=== PATIENT | female | born 1975 | race Caucasian/White ===

== ENCOUNTER 2016-07-23 07:38 | Inpatient (IN) ==
[2016-07-23] MEDS ORDERED: IOPAMIDOL 100 ML BOTTLE IV ONE (07:39)
[2016-07-23] MEDS ORDERED: 0.9 % SODIUM CHLORIDE 1,000 ML IV ONE (08:06)
[2016-07-23] MEDS ORDERED: ONDANSETRON 4 MG/2 ML VIAL IV ONE ×2 (08:07→10:16)
--- NOTE | 2016-07-23 08:34 | Emergency Department Note ---
Abdominal Pain HPI - General Chief Complaint: Abdominal Pain Stated Complaint: Lower R abd pain Time Seen by Provider: 07/23/16 08:31 Source: patient Mode of arrival: ambulatory - History of Present Illness HPI Narrative: 41-year-old female with a history of right lower quadrant pain present since 1: 00 yesterday afternoon. She states the pain was a 7/10 yesterday and is now complaining that it an 8/10. It has gotten worse. Also states that when she moves around. It does hurt in the right lower quadrant. She last ate at 8:00 last night. sHe denies urgency, frequency or dysuria. Patient is afebrile. She has nausea, but there's been no vomiting. There's been no diarrhea, constipation problems. No hematemesis, no melena. a history of a cholecystectomy, but still has her appendix - Related Data Home Medications Medication Instructions Recorded Confirmed Albuterol Sulfate [Albuterol 2 puff INHALATION Q4HP PRN 07/23/16 07/23/16 Sulfate Hfa] Ferrous Gluconate [Fergon] 240 mg PO PRN PRN 07/23/16 07/23/16 Omeprazole [Prilosec] 20 mg PO DAILY 07/23/16 07/23/16 Previous Rx's Medication Instructions Recorded norethindrone-e.estradiol 1 tab PO QDAY #28 tab 03/15/16 triphasic 0.5 mg/0.75 mg/1 mg-35 mcg tablet levothyroxine 125 mcg tablet 125 mcg PO QDAY 30 Days 06/03/16 hydrocodone 7.5 mg-acetaminophen 1 tab PO BID PRN #60 tab 06/28/16 325 mg tablet hydrocodone bitartrate ER 20 mg 20 mg PO BID #60 cap 06/28/16 capsule,extended release 12 hr Allergies Allergy/AdvReac Type Severity Reaction Status Date / Time No Known Drug Allergies Allergy Verified 07/23/16 07:43 Review of Systems All systems ED: reviewed and negative except as stated. Constitutional: Denies: fever Eyes: Denies: eye pain ENT ED: Denies: ear pain Cardiovascular: Denies: chest pain Respiratory: Denies: cough Gastrointestinal: Reports: as per HPI, abdominal pain. Denies: nausea, vomiting , diarrhea, constipation, hematemesis, melena, hematochezia Genitourinary: Denies: urgency, dysuria, frequency Musculoskeletal: Denies: back pain Neurological: Denies: headache Psychiatric: Denies: anxiety Endocrine: Denies: fatigue Hematological/Lymphatic: Denies: easy bleeding Allergic/Immunologic: Denies: facial swelling Abdominal Pain PMH - Past Medical History Surgical history ED: Reports: cholecystectomy Family history: Reports: no significant family history - Social History Smoking status: Former smoker Alcohol use: Reports: None Drug use: Reports: none Physical Exam - General Limitations: no limitations General appearance: alert - Head Head exam: atraumatic - Eye Eye exam: Present: normal appearance - ENT ENT exam: normal exam, normal oropharynx - Neck Neck exam: Present: normal inspection, full ROM. Absent: trachea midline - Chest Chest inspection: Present: normal inspection - Respiratory Respiratory exam: Present: normal lung sounds bilaterally. Absent: respiratory distress, wheezes - Cardiovascular Cardiovascular exam: Present: regular rate, normal rhythm. Absent: bradycardia - Abdominal Exam Abdominal exam: Present: tenderness, guarding, rebound, normal bowel sounds, tenderness at McBurney's Point. Absent: rigidity, organomegaly Abdominal tenderness: Present: RLQ - Rectal Exam Rectal exam: Present: deferred - Extremities Exam Extremities exam: Present: normal inspection, full ROM - Back Exam Back exam: Present: normal inspection, full ROM. Absent: tenderness - Neurological Exam Neurological exam: Present: alert, oriented X3, CN II-XII intact - Psychiatric Psychiatric exam: Present: normal affect Course Vital Signs Temperature 98.4 F 07/23/16 07:39 Pulse Rate 108 H 07/23/16 07:39 Respiratory Rate 16 07/23/16 07:39 Blood Pressure 121/74 07/23/16 07:39 Pulse Oximetry (%) 98 07/23/16 07:39 Temperature 98.4 F 07/23/16 07:39 Pulse Rate 80 07/23/16 09:16 Respiratory Rate 20 07/23/16 09:16 Blood Pressure 116/61 07/23/16 09:16 Pulse Oximetry (%) 98 07/23/16 09:16 Abdominal Pain - MDM Narrative Medical decision making narrative: White count is elevated at 15,000, CT was performed. She reveals probable diverticulitis over the area of the appendix. The appendix appeared to be normal. Case was discussed with Dr. Wharton. The patient to be admitted, started on Zosyn and reevaluated - Lab Data Result diagrams: 07/23/16 08:15 Lab Results 07/23/16 07/23/16 Range/Units 08:15 08:15 WBC 15.4 H (4.5-11.0) K/mcL RBC 4.52 (4.00-5.20) M/mcL Hgb 12.8 (12.0-15.0) g/dL Hct 39.0 (36.0-48.0) % POC Hct 40.0 (36.0-48.0) % MCV 86.2 (80.0-100.0) fL MCH 28.2 (26.0-34.0) pg MCHC 32.8 (31.0-36.0) g/dL RDW 13.9 (11.5-14.5) % Plt Count 289 (140-440) K/mcL MPV 8.2 (7.4-10.4) fL Total Counted 200 Seg Neutrophils % 73 (38-78) % Band Neutrophils % Not Reportable Lymphocytes % 17 (15-49) % Monocytes % (Manual) 5 (1-9) % Eosinophils % (Manual) 1 (0-7) % Reactive Lymphocytes 4 H (0-2) % Platelet Estimate Normal (NORMAL) RBC Morphology Normal (NORMAL) POC Sodium 139 (133-145) mmol/L POC Potassium 4.0 (3.3-5.1) mmol/L POC Chloride 101 (96-108) mmol/L POC Total CO2 26 (22-30) mmol/L POC BUN 9 (6-20) mg/dl POC Creatinine 0.6 (0.6-1.1) mg/dl POC Glucose 123 H (70-105) mg/dL POC WB Ioniz Calcium 1.17 (1.16-1.32) mmol/L Disposition Clinical Impression: Acute abdomen Disposition: Xfer As Outpt/Obs ([facility]) Condition: Undetermined Referrals: Val Lechuga, LIYAH, SHOULDER PUNCHER [Primary Care Provider] - Time of Disposition: 09:43
[2016-07-23 08:57] LABS: Mean Cell Volume 86.2 fL (80.0-100.0); Mean Corpuscular HGB Conc 32.8 g/dL (31.0-36.0); Mean Corpuscular Hemoglobin 28.2 pg (26.0-34.0); Platelet Count 289 K/mcL (140-440); RBC 4.52 M/mcL (4.00-5.20); Red Cell Distribution Width 13.9 % (11.5-14.5)
[2016-07-23 09:23] LABS: Eosinophils % (Manual) 1 % (0-7); Lymphocytes % 17 % (15-49); Monocytes % (Manual) 5 % (1-9); Platelet Estimate NORMAL (NORMAL); RBC Morphology NORMAL (NORMAL); Segmented Neutrophils % 73 % (38-78)
--- NOTE | 2016-07-23 09:24 | Cat Scan Report ---
CLINICAL INFORMATION: Right lower quadrant pain. Elevated white blood cell count. COMPARISON: Previous CT scan dated 09/25/2012 TECHNIQUE: Axial images were obtained through the abdomen and pelvis. Sagittally and coronally reformatted images. 80 mL nonionic contrast material injected intravenously. FINDINGS: Appendix is prominent. Appendix measures approximately 7 mm in cross-sectional diameter. Appendiceal lumen is gas filled. No appendicolith. There is a cecal diverticulum containing contrast material. There is extensive pericecal inflammatory change. There are small lymph nodes adjacent to the cecum. Appearance is consistent with cecal diverticulitis. No discrete abscess. No pneumoperitoneum. No free pelvic fluid. No detectable colonic mass. Colon is otherwise negative. No sigmoid diverticulitis. Lung bases are negative. No focal infiltrate or mass. No pleural fluid. No pericardial fluid. Negative liver. No focal intrahepatic abnormality. Gallbladder has been removed. No dilated bile ducts. Negative pancreas. No pancreatic mass. No peripancreatic abnormality. Negative spleen. Normal enhancement splenic and portal veins. Negative adrenal glands. Negative kidneys. No solid or cystic mass. No hydronephrosis. No small bowel obstruction. Lumbar spine, sacrum, pelvis are negative. Images were reviewed directly with Dr. Werner IMPRESSION: 1. Localized inflammatory reaction infiltration of pericecal fat and a small amount of fluid. Appearance is consistent with cecal diverticulitis. Appendiceal lumen remains gas-filled without definite evidence for appendicitis. 2. No other abnormality. Interpreted and Authenticated by: Christiano Medina 07/23/16
[2016-07-23] MEDS ORDERED: PIPERACILLIN SODIUM/TAZOBACTAM 3.375 GM in DEXTROSE 5% IN WATER 50 ML IV SCH (09:45)
[2016-07-23] MEDS ORDERED: ONDANSETRON 4 MG/2 ML VIAL ONE (10:24)
[2016-07-23] MEDS: HYDROmorphone 2 MG/ML SYRINGE IV PRN ×5 (11:28→21:44)
[2016-07-23] MEDS: PIPERACILLIN SODIUM/TAZOBACTAM 3.375 GM in DEXTROSE 5% IN WATER 50 ML IV SCH ×2 (11:30→21:40)
[2016-07-23] MEDS: 0.9 % SODIUM CHLORIDE 1,000 ML IV SCH ×2 (11:41→23:24)
[2016-07-23] MEDS: metroNIDAZOLE 500 MG/100 ML BAG IV SCH ×3 (12:31→23:24)
--- NOTE | 2016-07-23 15:16 | General Surg History&Physical ---
History of Present Illness Patient information: Note initiated : 07/23/16 at 3:14 pm Service Date, if different from initiated Date: [] Patient: Julia Torres 41 y/o F admitted on 07/23/16 for Lower Rt Abd Pain. Chief Complaint: [] HPI: Ms. Torres is a 41 year old female WAS ADMITTED WITH RIGHT LOWER QUADRANT PAIN .the patient had onset of sharp pain in her right lower quadrant about 2 PM yesterday. The pain continued throughout the night. She had nausea but no vomiting. She did not have diarrhea. When she awakened this morning her pain was very severe and she was evaluated in the emergency room. She was noted to have a white count of 14,[address] scan shows a normal appendix with pericecal inflammation suggestive of cecal diverticulitis. She is admitted and will be treated nonoperatively as long as she responds. Review of Systems - Constitutional fatigue, headache(s), malaise - EENT Nose, mouth and throat: headache(s), neck pain - Cardiovascular no chest pain at rest, no chest pain with activity, no dyspnea on exertion, no irregular heart rhythm, no palpatations, no rapid heart rate, no syncope - Respiratory as per HPI ( cell and is right on the chest) - Gastrointestinal abdominal pain, bloating, cramping, nausea - Genitourinary Genitourinary: urinary incontinence - Musculoskeletal arthralgias, joint swelling, myalgias, stiffness - Integumentary no bleeding lesions, no changing lesions, no swelling - Neurological as per HPI ( to open the patient), headache(s) - Psychiatric abnormal sleep pattern, anxiety, depression, irritability - Hematologic/Lymphatic no easy bleeding, no easy bruising, no lymphadenopathy - Allergic/Immunologic no tongue swelling, no throat swelling, no uticaria, no wheezing, no lip swelling Past History Past medical history: history of asthma History of anemia Fibromyalgia Gastroesophal reflux disease Hypothyroidism Migraine headaches Chronic joint pain Diabetes mellitus2 Past surgical history: left shoulder arthroscopy Cholecystectomy Abdominoplasty Trigger finger surgery Past family history: breast cancer Chronic obstructive lung disease Depression Hypertension Coronary artery disease Gastric neoplasm Past social history: alcohol--denies Tobacco--former user Substance--present marijuana user Medications and Allergies Home Medications Medication Instructions Recorded Confirmed Type Albuterol Sulfate [Albuterol 2 puff INHALATION Q4HP PRN 07/23/16 07/23/16 History Sulfate Hfa] Ferrous Gluconate [Fergon] 240 mg PO PRN PRN 07/23/16 07/23/16 History Omeprazole [Prilosec] 20 mg PO DAILY 07/23/16 07/23/16 History Allergies Allergy/AdvReac Type Severity Reaction Status Date / Time No Known Drug Allergies Allergy Verified 07/23/16 07:43 Exam Temp Pulse Resp BP Pulse Ox 98.4 F 85 16 118/71 96 07/23/16 11:44 07/23/16 11:44 07/23/16 11:44 07/23/16 11:44 07/23/16 11:44 - General physical appearance well developed, well nourished, no distress - Eyes PERRL, normal ocular movement - ENT normal pinna, normal nares, normal mucosa, no hearing loss, no congestion - Head Head exam IM: Present: atraumatic, normocephalic - Neck no masses, no bruits, trachea midline, no lymphadectomy, no venous distension - Cardiovascular Cardiovascular exam IM: Present: normal rate and rhythm - Respiratory normal expansion, normal respiratory effort, clear to percussion, clear to auscultation - Abdomen Abdomen: Present: soft (urgical changes of the abdominal wall from abdominoplasty;distention of abdomen; tenderness with guarding right lower quadrant), tender, bowel sounds, distended Hernia: Present: none - Integumentary Present: no rash, no growths, no abnormal pigmentation - Neurologic Present: normal coordination, normal sensation - Musculoskeletal Present: normal gait, normal posture - Psychiatric Present: oriented to time, oriented to person, oriented to place, speech is normal, memory intact Assessment and Plan (1) Cecal diverticulitis patient will be treated with Zosyn andFlagyl IV. She will be nothing by mouth exce popsicles Repeat CT scan will be done in 72 hours to document healing. If she heals she will be discharged home on 2 weeks of antibiotics. If she needs operative therapy she will probably need a right colectomy. 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
[2016-07-23] MEDS ORDERED: BUTALB/ACETAMINOPHEN/CAFFEINE 1 TABLET PO ONE (15:23)
[2016-07-23] MEDS: PROMETHAZINE 25 MG/ML VIAL IV PRN (19:35)
[2016-07-24] MEDS: BUTALB/ACETAMINOPHEN/CAFFEINE 1 TABLET PO PRN (03:48)
[2016-07-24] MEDS: HYDROmorphone 2 MG/ML SYRINGE IV PRN ×7 (03:49→22:18)
[2016-07-24] MEDS: PIPERACILLIN SODIUM/TAZOBACTAM 3.375 GM in DEXTROSE 5% IN WATER 50 ML IV SCH ×3 (05:27→22:17)
[2016-07-24] MEDS: 0.9 % SODIUM CHLORIDE 1,000 ML IV SCH ×3 (06:02→22:19)
[2016-07-24] MEDS: metroNIDAZOLE 500 MG/100 ML BAG IV SCH ×4 (06:06→23:47)
[2016-07-24] MEDS ORDERED: FLU VACC QS2016-17 36MOS UP/PF 60 MCG/0.5 ML SYRINGE IM ONE (09:00)
[2016-07-24 09:46] LABS: Blood Urea Nitrogen 6 mg/dl (6-20)
[2016-07-24] MEDS: PROMETHAZINE 25 MG/ML VIAL IV PRN ×2 (09:54→22:17)
[2016-07-24 14:08] LABS: Basophils # (Auto) 0 K/mcL (0.0-0.3); Basophils % (Auto) 0.2 % (0.0-2.0); Eosinophils # (Auto) 0.2 K/mcL (0.0-0.7); Eosinophils % (Auto) 2.3 % (0.0-7.0); Granulocytes % (Auto) 69.2 % (38.0-78.0); Lymphocytes # (Auto) 2.3 K/mcL (1.5-4.8); Lymphocytes % (Auto) 22.1 % (15.5-49.0); Mean Cell Volume 87.9 fL (80.0-100.0); Mean Corpuscular HGB Conc 32.8 g/dL (31.0-36.0); Mean Corpuscular Hemoglobin 28.8 pg (26.0-34.0); Monocytes # (Auto) 0.7 K/mcL (0.1-0.9); Monocytes % (Auto) 6.2 % (1.0-9.0); Platelet Count 239 K/mcL (140-440); RBC 3.56 M/mcL (4.00-5.20); Red Cell Distribution Width 13.2 % (11.5-14.5)
--- NOTE | 2016-07-24 14:53 | General Surgery Progress Note ---
Subjective Narrative: Note initiated : 07/24/16 at 2:49 pm Service Date, if different from initiated Date: [] Patient: Julia Torres 41 y/o F admitted on 07/23/16 for Lower Rt Abd Pain/ Cecal Diverticulitis. Chief Complaint: [] Ms. Torres still has significant right lower quadrant pain and right flank pain. She has nausea bu no vomiting. She has had flatus but no bowel movement. She has not had documented fever. She is not clinically worse. Discussed the need to continue antibiotics and repeat CT scan on Friday. Objective Temp Pulse Resp BP Pulse Ox 97.6 F 74 14 107/72 96 07/24/16 12:00 07/24/16 12:00 07/24/16 12:00 07/24/16 12:00 07/24/16 12:00 - Additional Data Intake & Output - Last 24 hours: Intake & Output 07/22/16 07/23/16 07/24/16 07/25/16 05:59 05:59 05:59 05:59 Intake Total 1790 / 2940 1150 / 1150 Output Total 1000 / 1000 Balance 790 / 1940 1150 / 1150 Weight 185 lb - General physical appearance moderate distress - ENT no congestion - Neck no venous distension - Respiratory clear to auscultation - Cardiovascular Cardiovascular exam: Present: normal rate and rhythm, RRR, +S1, +S2 - Abdomen tender, bowel sounds, distended (distended abdomen with active bowel sounds; tenderness with guardingin right lower quadrant and right flank region. No mass felt.) - Integumentary no rash, no growths, no abnormal pigmentation - Neurologic normal coordination, normal sensation - Musculoskeletal normal gait, normal posture - Psychiatric oriented to time, oriented to person, oriented to place, speech is normal, memory intact - Labs 07/24/16 13:35 07/24/16 07:37 Diabetes panel 07/24/16 Range/Units 07:37 Sodium 141 (133-145) mmol/L Potassium 3.7 (3.3-5.1) mmol/L Chloride 102 (96-108) mmol/L Carbon Dioxide 26 (22-30) mmol/L BUN 6 (6-20) mg/dl Creatinine 0.7 (0.6-1.1) mg/dl Glucose 92 (70-105) mg/dL Calcium 8.1 L (8.6-10.4) mg/dl Calcium panel 07/24/16 Range/Units 07:37 Calcium 8.1 L (8.6-10.4) mg/dl Pituitary panel 07/24/16 Range/Units 07:37 Sodium 141 (133-145) mmol/L Potassium 3.7 (3.3-5.1) mmol/L Chloride 102 (96-108) mmol/L Carbon Dioxide 26 (22-30) mmol/L BUN 6 (6-20) mg/dl Creatinine 0.7 (0.6-1.1) mg/dl Glucose 92 (70-105) mg/dL Calcium 8.1 L (8.6-10.4) mg/dl Adrenal panel 07/24/16 Range/Units 07:37 Sodium 141 (133-145) mmol/L Potassium 3.7 (3.3-5.1) mmol/L Chloride 102 (96-108) mmol/L Carbon Dioxide 26 (22-30) mmol/L BUN 6 (6-20) mg/dl Creatinine 0.7 (0.6-1.1) mg/dl Glucose 92 (70-105) mg/dL Calcium 8.1 L (8.6-10.4) mg/dl Medical - PN: A/P - Time Spent With Patient Total time spent is greater than 50% in coordination of care (as documented) at patient's floor/unit and/or counseling patient: (1) Cecal diverticulitis Status: Acute Assessment and plan: CT of abdomen and pelvis with contrast on Friday for follow-up of diverticulitis Continue present antibiotic regimen Current Visit: Yes (2) Anxiety Status: Acute Current Visit: No (3) Diabetes mellitus Status: Chronic Current Visit: No (4) Fibromyalgia Problem details: She has previously tried Lyrica, Cymbalta, MS contin, hydrocodone previously without sustained relief Status: Chronic Current Visit: No (5) Gastroesophageal reflux Problem details: 2010 - Take omeprazole for this, still gets exacerbation periodically Status: Chronic Current Visit: No
[2016-07-25] MEDS: HYDROmorphone 2 MG/ML SYRINGE IV PRN ×6 (02:35→22:24)
[2016-07-25] MEDS: PROMETHAZINE 25 MG/ML VIAL IV PRN ×3 (02:35→19:44)
[2016-07-25] MEDS: 0.9 % SODIUM CHLORIDE 1,000 ML IV SCH ×4 (02:35→22:18)
[2016-07-25] MEDS: PIPERACILLIN SODIUM/TAZOBACTAM 3.375 GM in DEXTROSE 5% IN WATER 50 ML IV SCH ×3 (06:04→22:25)
[2016-07-25] MEDS: metroNIDAZOLE 500 MG/100 ML BAG IV SCH ×3 (06:39→18:25)
[2016-07-25 07:05] LABS: Basophils # (Auto) 0 K/mcL (0.0-0.3); Basophils % (Auto) 0.2 % (0.0-2.0); Eosinophils # (Auto) 0.2 K/mcL (0.0-0.7); Eosinophils % (Auto) 2.5 % (0.0-7.0); Granulocytes % (Auto) 58.5 % (38.0-78.0); Lymphocytes # (Auto) 2.6 K/mcL (1.5-4.8); Lymphocytes % (Auto) 32.4 % (15.5-49.0); Mean Cell Volume 87.4 fL (80.0-100.0); Mean Corpuscular HGB Conc 32.8 g/dL (31.0-36.0); Mean Corpuscular Hemoglobin 28.7 pg (26.0-34.0); Monocytes # (Auto) 0.5 K/mcL (0.1-0.9); Monocytes % (Auto) 6.4 % (1.0-9.0); Platelet Count 230 K/mcL (140-440); RBC 3.47 M/mcL (4.00-5.20); Red Cell Distribution Width 12.9 % (11.5-14.5)
[2016-07-25] MEDS: PANTOPRAZOLE 40 MG TABLET PO SCH (07:11)
[2016-07-25 07:46] LABS: Blood Urea Nitrogen 5 mg/dl (6-20)
--- NOTE | 2016-07-25 10:59 | General Surg History&Physical ---
History of Present Illness Patient information: Note initiated : 07/25/16 at 10:56 am Service Date, if different from initiated Date: [] Patient: Julia Torres 41 y/o F admitted on 07/23/16 for Lower Rt Abd Pain/ Cecal Diverticulitis. Chief Complaint: [] HPI: Ms. Torres is a 41 year old female Medications and Allergies Home Medications Medication Instructions Recorded Confirmed Type Albuterol Sulfate [Albuterol 2 puff INHALATION Q4HP PRN 07/23/16 07/23/16 History Sulfate Hfa] Ferrous Gluconate [Fergon] 240 mg PO PRN PRN 07/23/16 07/23/16 History Omeprazole [Prilosec] 20 mg PO DAILY 07/23/16 07/23/16 History Allergies Allergy/AdvReac Type Severity Reaction Status Date / Time No Known Drug Allergies Allergy Verified 07/23/16 07:43 Exam Temp Pulse Resp BP Pulse Ox 97.4 F L 79 16 124/82 97 07/25/16 06:54 07/25/16 06:54 07/25/16 06:54 07/25/16 06:54 07/25/16 06:54 Assessment and Plan (1) Cecal diverticulitis Status: Acute (2) Anxiety Status: Acute (3) Diabetes mellitus Status: Chronic Qualifiers: Diabetes mellitus type: type 2 Diabetes mellitus complication status: without complication 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
--- NOTE | 2016-07-25 16:29 | General Surgery Progress Note ---
Subjective Patient reports: feels better, still having pain, pain is less, tolerating liquids well, flatus, bowel movement, afebrile Narrative: Note initiated : 07/25/16 at 4:27 pm Service Date, if different from initiated Date: [] Patient: Julia Torres 41 y/o F admitted on 07/23/16 for Lower Rt Abd Pain/ Cecal Diverticulitis. Chief Complaint: [patient is doing much better. She had a regular bowel movement today and has been passing more flatus. She has not had rectal bleeding. Her right sided and suprapubic pain is better. She is tolerating it liquid diet without difficulty. She denies nausea. She has been afebrile and her white count is normal is normal] Objective Temp Pulse Resp BP Pulse Ox 97.7 F 70 16 131/81 99 07/25/16 15:19 07/25/16 15:19 07/25/16 15:19 07/25/16 15:19 07/25/16 15:19 - Additional Data Intake & Output - Last 24 hours: Intake & Output 07/23/16 07/24/16 07/25/16 07/26/16 05:59 05:59 05:59 05:59 Intake Total 1790 / 2940 3130 / 3130 590 / 590 Output Total 1000 / 1000 3000 / 3000 2700 / 2700 Balance 790 / 1940 130 / 130 -2110 / -2110 Weight 185 lb 184 lb 8 oz - General physical appearance moderate distress - Eyes PERRL - ENT no congestion - Neck no venous distension - Respiratory clear to auscultation - Cardiovascular Cardiovascular exam: Present: normal rate and rhythm, RRR, +S1, +S2. Absent: JVD - Abdomen soft, tender, distended (abdomen is still distended and she still has tenderness suprapubic area right lower quad. She does not have as much gardening as she had yesterday. She has good active bowel sounds.) - Integumentary no rash, no growths, no abnormal pigmentation - Neurologic normal coordination, normal sensation - Musculoskeletal normal gait, normal posture - Psychiatric oriented to time, oriented to person, oriented to place, speech is normal, memory intact - Labs 07/25/16 05:25 07/25/16 05:25 Diabetes panel 07/25/16 Range/Units 05:25 Sodium 142 (133-145) mmol/L Potassium 4.0 (3.3-5.1) mmol/L Chloride 106 (96-108) mmol/L Carbon Dioxide 24 (22-30) mmol/L BUN 5 L (6-20) mg/dl Creatinine 0.7 (0.6-1.1) mg/dl Glucose 94 (70-105) mg/dL Calcium 8.0 L (8.6-10.4) mg/dl Calcium panel 07/25/16 Range/Units 05:25 Calcium 8.0 L (8.6-10.4) mg/dl Pituitary panel 07/25/16 Range/Units 05:25 Sodium 142 (133-145) mmol/L Potassium 4.0 (3.3-5.1) mmol/L Chloride 106 (96-108) mmol/L Carbon Dioxide 24 (22-30) mmol/L BUN 5 L (6-20) mg/dl Creatinine 0.7 (0.6-1.1) mg/dl Glucose 94 (70-105) mg/dL Calcium 8.0 L (8.6-10.4) mg/dl Adrenal panel 07/25/16 Range/Units 05:25 Sodium 142 (133-145) mmol/L Potassium 4.0 (3.3-5.1) mmol/L Chloride 106 (96-108) mmol/L Carbon Dioxide 24 (22-30) mmol/L BUN 5 L (6-20) mg/dl Creatinine 0.7 (0.6-1.1) mg/dl Glucose 94 (70-105) mg/dL Calcium 8.0 L (8.6-10.4) mg/dl Medical - PN: A/P - Time Spent With Patient Total time spent is greater than 50% in coordination of care (as documented) at patient's floor/unit and/or counseling patient: (1) Cecal diverticulitis Status: Acute Assessment and plan: CT of abdomen and pelvis with contrast on Friday for follow-up of diverticulitis Continue present antibiotic regimen Current Visit: Yes (2) Anxiety Status: Acute Current Visit: No (3) Diabetes mellitus Status: Chronic Current Visit: No (4) Fibromyalgia Problem details: She has previously tried Lyrica, Cymbalta, MS contin, hydrocodone previously without sustained relief Status: Chronic Current Visit: No (5) Gastroesophageal reflux Problem details: 2009 - Take omeprazole for this, still gets exacerbation periodically Status: Chronic Current Visit: No
[2016-07-26] MEDS: metroNIDAZOLE 500 MG/100 ML BAG IV SCH ×3 (00:15→11:34)
[2016-07-26] MEDS: HYDROmorphone 2 MG/ML SYRINGE IV PRN ×3 (01:39→12:59)
[2016-07-26] MEDS: BUTALB/ACETAMINOPHEN/CAFFEINE 1 TABLET PO PRN (04:58)
[2016-07-26] MEDS: PIPERACILLIN SODIUM/TAZOBACTAM 3.375 GM in DEXTROSE 5% IN WATER 50 ML IV SCH (06:42)
[2016-07-26 07:14] LABS: Basophils # (Auto) 0 K/mcL (0.0-0.3); Basophils % (Auto) 0.4 % (0.0-2.0); Eosinophils # (Auto) 0.1 K/mcL (0.0-0.7); Eosinophils % (Auto) 1.8 % (0.0-7.0); Granulocytes % (Auto) 52.8 % (38.0-78.0); Lymphocytes # (Auto) 2.8 K/mcL (1.5-4.8); Lymphocytes % (Auto) 38.9 % (15.5-49.0); Mean Cell Volume 86.9 fL (80.0-100.0); Mean Corpuscular HGB Conc 33.3 g/dL (31.0-36.0); Monocytes # (Auto) 0.4 K/mcL (0.1-0.9); Monocytes % (Auto) 6.1 % (1.0-9.0); Platelet Count 253 K/mcL (140-440); RBC 3.65 M/mcL (4.00-5.20)
[2016-07-26] MEDS ORDERED: LEVOTHYROXINE 125 MCG TABLET PO SCH (07:30)
[2016-07-26] MEDS: PANTOPRAZOLE 40 MG TABLET PO SCH (07:44)
[2016-07-26 07:55] LABS: Blood Urea Nitrogen 5 mg/dl (6-20)
[2016-07-26] MEDS: 0.9 % SODIUM CHLORIDE 1,000 ML IV SCH (07:57)
[2016-07-26] MEDS ORDERED: IOPAMIDOL 100 ML BOTTLE IJ ONE (08:38)
[2016-07-26] MEDS: PROMETHAZINE 25 MG/ML VIAL IV PRN (08:52)
[2016-07-26] MEDS ORDERED: OMEPRAZOLE 20 MG CAPSULE PO SCH (09:00)
--- NOTE | 2016-07-26 09:02 | Cat Scan Report ---
CLINICAL INFORMATION: Right lower quadrant pain. Previous CT scan was consistent with cecal diverticulitis. COMPARISON: Previous examination dated 07/23/2016 TECHNIQUE: Axial images were obtained through the abdomen and pelvis. Sagittally and coronally reformatted images. 80 mL nonionic contrast material injected intravenously. Oral contrast material was administered FINDINGS: The appendix remains prominent and measures approximate 7 mm in cross-sectional diameter. There continues to be intraluminal gas throughout its length. Again demonstrated is a diverticulum at the level of the cecum. There is surrounding inflammatory change consistent with cecal diverticulitis. This is improved. There is focal colonic wall thickening with a suggestion of some radiating folds. This may be due to localized inflammatory reaction but neoplasm is not excluded despite this patient's young age. Continued follow-up CT scan or endoscopy is recommended to exclude a cecal mass. There are small pericecal lymph nodes which are essentially stable. Colon is otherwise negative. Sigmoid colon is negative. No diverticular disease. Lung bases are negative. No parenchymal infiltrate or mass. No pleural fluid. No pericardial fluid. Liver is negative. No focal intrahepatic abnormality. Gallbladder has been removed. Spleen is negative. No splenomegaly. Pancreas is negative. No pancreatic mass. Adrenal glands are negative. Kidneys are negative. No hydronephrosis. No solid or cystic mass. Abdominal aorta is negative. No abdominal aortic aneurysm. No significant calcification. Uterus is present. No adnexal mass. No free pelvic fluid. No intra-abdominal abscess. No pneumoperitoneum. Lumbar spine, sacrum, pelvis are negative. IMPRESSION: 1. Improved pericecal inflammatory change. Appearance remains consistent with cecal diverticulitis. Neoplasm is not excluded and continued follow-up with oral contrast material or endoscopy is recommended. 2. Appendix remains slightly prominent in size but there continues to be intraluminal gas and no evidence for appendicitis. Interpreted and Authenticated by: Christiano Medina 07/26/16
--- NOTE | 2016-07-26 13:15 | Discharge Summary ---
Providers - Providers Patient information: Note initiated : 07/26/16 at 1:10 pm Service Date, if different from initiated Date: [] Patient: Julia Torres 41 y/o F admitted on 07/23/16 for Lower Rt Abd Pain/ Cecal Diverticulitis. Chief Complaint: [] Date of admission: 07/23/16 Discharge date: 07/26/16 Attending physician: Kayla Wharton Hospitalization Hospital course: 41-year-old female admitted on 23 July 2016 with right lower quadrant pain nausea and leukocytosis She had CT evidence of cecal diverticulitis. She has been treated with IV antibiotics and bowel rest and has gradually improved. Follow-up CT of the abdomen today showsradiographic improvement with decrease in inflammation and no progression of that tissue stranding free air. She has tolerated full liquid dietand has started to have bowel movements without difficulty. Her white count is normaland her abdominal exam is much improved. She is stable for discharge. Discharge diagnosis: cecal diverticulitis Reason for admission: cecal diverticulitis Pertinent studies/significant findings: cT of abdomen and pelvis with contrast 2 Complications: none Exam Temp Pulse Resp BP Pulse Ox 98.3 F 72 16 119/74 97 07/26/16 11:56 07/26/16 11:56 07/26/16 11:56 07/26/16 11:56 07/26/16 11:56 - General physical appearance well developed, well nourished, no distress - Eyes PERRL, normal ocular movement - ENT normal pinna, normal nares, normal mucosa, no hearing loss, no congestion - Head Head exam IM: Present: atraumatic, normocephalic - Neck no masses, no bruits, trachea midline, no lymphadectomy, no venous distension - Cardiovascular Cardiovascular exam IM: Present: normal rate and rhythm - Respiratory normal expansion, normal respiratory effort, clear to percussion, clear to auscultation - Abdomen Abdomen: Present: soft, tender, bowel sounds, distended (mild tenderness and right lower quadrant but with decreaseand guarding. Good active bowel sounds. No palpable mass.) Hernia: Present: none - Integumentary Present: no rash, no growths, no abnormal pigmentation - Neurologic Present: normal coordination, normal sensation - Musculoskeletal Present: normal gait, normal posture - Psychiatric Present: oriented to time, oriented to person, oriented to place, speech is normal, memory intact Discharge Plan - Patient/Caregiver Discharge Instructions Activity: increase activity as tolerated Diet: Full Liquid Prescriptions: Clindamycin HCl [Cleocin] 300 mg PO QID #60 capsule Doxycycline Monohydrate 100 mg PO BID #30 tablet - Follow up Plan Follow up with: Val Lechuga, LIYAH, [employer]IEF [employer] [Primary Care Provider] - Kayla Wharton MD [Physician] - 08/06/16 8:45 am Disposition: Home, Self-Care Prognosis: Good Rehab Potential: Good I certify that the patient requires SNF services.: No Overall status at discharge: patient is progressing back to baseline Pending Studies Resuscitation Status Full Code Diet Clear Liquid Diet Start Evelyn Jul 25 Lunch Acetaminophen/Butalbital/Caffeine (Fioricet) 2 tab PO Q4HP PRN PRN Reason: Headache Last Admin: 07/26/16 04:58 Dose: 2 tab Admin: 07/24/16 03:48 Dose: 2 tab Hydromorphone HCl (Dilaudid) 1 mg IV Q2HP PRN PRN Reason: Pain Last Admin: 07/26/16 12:59 Dose: 1 mg Admin: 07/26/16 08:52 Dose: 1 mg Admin: 07/26/16 01:39 Dose: 1 mg Admin: 07/25/16 22:24 Dose: 1 mg Admin: 07/25/16 18:36 Dose: 1 mg Admin: 07/25/16 15:33 Dose: 1 mg Admin: 07/25/16 12:54 Dose: 1 mg Admin: 07/25/16 10:36 Dose: 1 mg Admin: 07/25/16 02:35 Dose: 1 mg Admin: 07/24/16 22:18 Dose: 1 mg Admin: 07/24/16 19:39 Dose: 1 mg Admin: 07/24/16 16:20 Dose: 1 mg Admin: 07/24/16 13:06 Dose: 1 mg Admin: 07/24/16 09:50 Dose: 1 mg Admin: 07/24/16 06:10 Dose: 1 mg Admin: 07/24/16 03:49 Dose: 1 mg Admin: 07/23/16 21:44 Dose: 1 mg Admin: 07/23/16 19:34 Dose: 1 mg Admin: 07/23/16 16:12 Dose: 1 mg Admin: 07/23/16 13:45 Dose: 1 mg Admin: 07/23/16 11:28 Dose: 1 mg Sodium Chloride (Sodium Chloride 0.9%) 1,000 mls @ 100 mls/hr IV .Q10H [facility] Last Admin: 07/26/16 07:57 Dose: 100 mls/hr Infusion: 07/26/16 03:45 Dose: 100 mls/hr Admin: 07/25/16 22:18 Dose: Not Given Admin: 07/25/16 17:45 Dose: 100 mls/hr Infusion: 07/25/16 17:45 Dose: 0 mls/hr Admin: 07/25/16 14:16 Dose: Not Given Admin: 07/25/16 02:35 Dose: 100 mls/hr Infusion: 07/25/16 02:30 Dose: 0 mls/hr Admin: 07/24/16 22:19 Dose: Not Given Admin: 07/24/16 11:52 Dose: 100 mls/hr Infusion: 07/24/16 09:24 Dose: 100 mls/hr Admin: 07/24/16 06:02 Dose: Not Given Admin: 07/23/16 23:24 Dose: 100 mls/hr Infusion: 07/23/16 23:24 Dose: 0 mls/hr Admin: 07/23/16 11:41 Dose: 100 mls/hr Metronidazole (Flagyl) 500 mg in 100 mls @ 100 mls/hr IV Q6 [facility] Last Admin: 07/26/16 11:34 Dose: 100 mls/hr Infusion: 07/26/16 06:46 Dose: 100 mls/hr Admin: 07/26/16 05:46 Dose: 100 mls/hr Infusion: 07/26/16 01:15 Dose: 0 mls/hr Admin: 07/26/16 00:15 Dose: 100 mls/hr Infusion: 07/25/16 19:25 Dose: 0 mls/hr Admin: 07/25/16 18:25 Dose: 100 mls/hr Infusion: 07/25/16 14:14 Dose: 100 mls/hr Admin: 07/25/16 13:14 Dose: 100 mls/hr Infusion: 07/25/16 07:39 Dose: 100 mls/hr Admin: 07/25/16 06:39 Dose: 100 mls/hr Infusion: 07/25/16 00:47 Dose: 100 mls/hr Admin: 07/24/16 23:47 Dose: 100 mls/hr Infusion: 07/24/16 18:54 Dose: 100 mls/hr Admin: 07/24/16 17:54 Dose: 100 mls/hr Infusion: 07/24/16 12:52 Dose: 100 mls/hr Admin: 07/24/16 11:52 Dose: 100 mls/hr Infusion: 07/24/16 07:06 Dose: 100 mls/hr Admin: 07/24/16 06:06 Dose: 100 mls/hr Infusion: 07/24/16 00:25 Dose: 0 mls/hr Admin: 07/23/16 23:24 Dose: 100 mls/hr Infusion: 07/23/16 19:11 Dose: 100 mls/hr Admin: 07/23/16 18:11 Dose: 100 mls/hr Infusion: 07/23/16 13:35 Dose: 0 mls/hr Admin: 07/23/16 12:31 Dose: 100 mls/hr Piperacillin Sod/Tazobactam (Sod 3.375 gm/ Dextrose) 50 mls @ 100 mls/hr IV Q8 [facility] Last Admin: 07/26/16 06:42 Dose: 100 mls/hr Infusion: 07/25/16 22:55 Dose: 100 mls/hr Admin: 07/25/16 22:25 Dose: 100 mls/hr Infusion: 07/25/16 14:42 Dose: 0 mls/hr Admin: 07/25/16 14:12 Dose: 100 mls/hr Infusion: 07/25/16 06:35 Dose: 0 mls/hr Admin: 07/25/16 06:04 Dose: 100 mls/hr Infusion: 07/24/16 23:46 Dose: 0 mls/hr Admin: 07/24/16 22:17 Dose: 100 mls/hr Infusion: 07/24/16 14:45 Dose: 100 mls/hr Admin: 07/24/16 14:15 Dose: 100 mls/hr Infusion: 07/24/16 06:00 Dose: 0 mls/hr Admin: 07/24/16 05:27 Dose: 100 mls/hr Infusion: 07/23/16 22:10 Dose: 0 mls/hr Admin: 07/23/16 21:40 Dose: 100 mls/hr Infusion: 07/23/16 12:00 Dose: 0 mls/hr Admin: 07/23/16 11:30 Dose: 100 mls/hr Levothyroxine Sodium (Synthroid) 125 mcg PO QAMAC [facility] Last Admin: 07/26/16 07:44 Dose: 125 mcg Pantoprazole Sodium (Protonix) 40 mg PO QAMAC [facility] Last Admin: 07/26/16 07:44 Dose: 40 mg Admin: 07/25/16 07:11 Dose: 40 mg Promethazine HCl (Phenergan) 12.5 mg IV Q4HP PRN PRN Reason: Nausea And Vomiting Last Admin: 07/26/16 08:52 Dose: 12.5 mg Admin: 07/25/16 19:44 Dose: 12.5 mg Admin: 07/25/16 12:54 Dose: 12.5 mg Admin: 07/25/16 02:35 Dose: 12.5 mg Admin: 07/24/16 22:17 Dose: 12.5 mg Admin: 07/24/16 09:54 Dose: 12.5 mg Admin: 07/23/16 19:35 Dose: 12.5 mg Shift Summary 07/26/16 03:54 Shift Summary by Delfina Mtz Medicated about every 3 hours for pain. Once so far with Phenergan. Up ad rangel to bathroom. Alert and oriented. Complains of increased gas that she is passing and she said she did have a BM yesterday. IV to left wrist infusing NS at 100 ml /hr. Uses call light appropriately, able to make needs known. Will have CT today to check for improvement and hopefully avoid surgery. Initialized on 07/26/16 03:54 - END OF NOTE
== END 2016-07-26 14:15 | disposition home or self-care (01) | DRG 392 ==
LOC: MEDSUR 07:38 → ED 07:38 → MEDSUR 10:20
PROVIDERS: ADMIT Family Medicine Adult Medicine; ATTEND Family Medicine Adult Medicine